=== PATIENT | male | born 1955 | race Hispanic/Latino ===

== ENCOUNTER 2017-09-03 07:44 | Emergency (ER) | payer BC ==
--- OUTSIDE RECORDS SUMMARY | 2017-09-03 07:46 | XMS REPORT | Clinical Summary ---
:1955 Author Organization [facility] Address [address] [place] [id number] Phone Care Team Providers Name Role Phone Unavailable Primary Care Provider Unavailable Allergies No Known Allergies Current Medications No known medications Active Problems Problem Noted Date Scrotal abscess 04/09/2016 Family History Medical History Relation Name Comments Diabetes Maternal Grandmother Diabetes Mother Relation Name Status Comments Maternal Grandmother Mother Social History Tobacco Use Types Packs/Day Years Used Date Current Every Day Smoker 2 40 Alcohol Use Drinks/Week oz/Week Comments Yes Sex Assigned at Date Recorded Not on file Last Filed Vital Signs Not on file Plan of Treatment Not on file Results Not on fileafter 09/02/2016
[2017-09-03 08:28] LABS: Urine Blood 3+ (NEG); Urine Glucose NEGATIVE (NEG); Urine Protein 3+ (NEG); Urine Specific Gravity >1.030 (1.005-1.030); Urine pH 5.5 (5.0-7.0)
[2017-09-03] MEDS ORDERED: PHENAZOPYRIDINE 100MG TAB PO ONE (08:29)
[2017-09-03 08:44] LABS: Urine Bacteria >50 /HPF (NONE SEEN); Urine Culture Reflex Order REFLEXED; Urine RBC >50 /HPF (NONE SEEN)
[2017-09-03 09:06] LABS: Absolute Lymphocytes (CBC) 0.7 K/uL (0.7-4.9); Absolute Monocytes 0.9 K/uL (0.1-1.3); Absolute Neutrophil 8.4 K/uL (1.8-8.0); Basophils % 0.1 % (0-1.3); Eosinophils % 4.9 % (0-4.4); Hematocrit 38.3 % (39.6-49.0); Lymphocytes % 7.1 % (15.3-44.8); MCH 28.7 pg (27.0-35.0); MCV 85.7 fL (80-100); Monocytes % 8.3 % (3.3-12.3); RBC Red Blood Cell Count 4.48 M/uL (4.33-5.43)
[2017-09-03 09:22] LABS: Potassium 3.7 mEq/L (3.6-5.0)
--- NOTE | 2017-09-03 09:22 | RAD REPORT ---
EXAM DESCRIPTION: CT - Stone Protocol - 09/03/2017 9:01 am CLINICAL HISTORY: Abdominal pain, dysuria, hematuria, history of kidney stones COMPARISON: CT imaging November 2012 TECHNIQUE: Axial 5 mm thick images were obtained without oral or IV contrast. The [id number]-doia span s the entirety of the system including uppermost abdomen and lung bases. All CT scans are performed using dose optimization technique as appropriate and may include automated exposure control or mA/KV adjustment according to patient size. FINDINGS: No hydronephrosis is present and no obstructing ureteral calculi. Two- 4 millimeter nonobs tructing caliceal calcifications noted on the left. No perinephric stranding seen. No suspicious liberty l masses. Isodense masses and pyelonephritis are not excluded on a stone protocol CT scan. Urinary bl adder is mostly contracted. Dunlap the bladder are mildly prominent and there is a congested or edemat ous appearance to the fat adjacent to the bladder base, prostate gland and seminal vesicles. Prostate gland size is mildly prominent but not clearly different from 2013. Imaged portions of the liver, spleen and pancreas show no suspicious findings on non-contrast imaging . No gallbladder or biliary tree abnormality identified. No significant adrenal finding. No suspicious bowel findings. No hernia, mass or bulky lymphadenopathy noted. No free air, free fluid, pneumatosis or other area of inflammatory stranding. Disc and bone degenerative changes are present. No acute bone process. No acute vascular finding on n oncontrast imaging. IMPRESSION: Suspected prostatitis and/or cystitis. Nonobstructing left renal calculi. No hydronephrosis or acute renal or ureteral process. Isodense masses and pyelonephritis are not excluded on stone protocol technique.
[2017-09-03 09:23] LABS: Glomerular Filtration Rate > 60 mL/min (>60)
[2017-09-03] MEDS ORDERED: MORPHINE 4 MG/ML SYR ONE (09:23)
[2017-09-03] MEDS ORDERED: ONDANSETRON 4 MG/2 ML VIAL ONE (09:23)
[2017-09-03 09:28] LABS: Albumin 3.8 g/dL (3.2-5.5); Bilirubin Direct 0.1 mg/dL (0-0.2); Bilirubin Total 0.8 mg/dL (0.3-1.2); Protein, Total 7.4 g/dL (6.0-8.3)
--- NOTE | 2017-09-03 09:40 | EDPHYS ---
Physician Documentation [facility] Name: Guille Copeland Jr Age: 62 yrs Sex: Male : 1955 Arrival Date: 09/03/2017 Time: 07:44 Bed 13 Private MD: Mushtaq Box H ED Physician Jesus Spence HPI: 09/03 08:14 This 62 yrs old Male presents to ER via Ambulatory with complaints of Pain cp With Urination. 08:14 The patient presents with urinary symptoms, dysuria, hematuria. Onset: The cp symptoms/episode began/occurred 3 day(s) ago. 08:14 Associated signs and symptoms: Pertinent positives: hematuria, Pertinent negatives: cp constipation, fever, vomiting. 08:14 Severity of symptoms: in the emergency department the symptoms are unchanged, despite cp home interventions. Historical: - Allergies: 07:58 No Known Allergies; ss - Home Meds: 07:58 None [Active]; ss - PMHx: 07:58 Kidney stones; ss - PSHx: 07:58 Appendectomy; back sx; R ankle; ss - Immunization history:: Adult Immunizations up to date. - Social history:: Smoking status: Patient/guardian denies using tobacco, the patient reports quitting approximately .25 years ago. ROS: 08:20 Constitutional: Negative for body aches, chills, fever, poor PO intake. cp 08:20 Eyes: Negative for injury, pain, redness, and discharge. cp 08:20 ENT: Negative for injury, pain, and discharge. cp 08:20 Cardiovascular: Negative for chest pain, edema, palpitations. cp 08:20 Respiratory: Negative for cough, shortness of breath, wheezing. 08:20 Abdomen/GI: Positive for abdominal pain, of the suprapubic area, Negative for vomiting, diarrhea, constipation, black/tarry stool, rectal bleeding. 08:20 : Positive for hematuria, Negative for testicular pain 08:20 Skin: Negative for cellulitis, rash. 08:20 Neuro: Negative for altered mental status, headache, weakness. 08:20 All other systems are negative. Exam: 08:30 Constitutional: The patient appears in no acute distress, alert, awake, non-toxic, well cp developed, well nourished, uncomfortable. 08:30 Head/Face: Normocephalic, atraumatic. cp 08:30 Eyes: Periorbital structures: appear normal, Conjunctiva: normal, no exudate, no injection, Sclera: no appreciated abnormality, Lids and lashes: appear normal, bilaterally. 08:30 ENT: External ear(s): are unremarkable, Nose: is normal, Mouth: is normal, Posterior pharynx: is normal, airway is patent, no erythema, no exudate, Voice: is normal. 08:30 Chest/axilla: Inspection: normal, Palpation: is normal, no crepitus, no tenderness. 08:30 Cardiovascular: Rate: normal, Rhythm: regular. 08:30 Respiratory: the patient does not display signs of respiratory distress, Respirations: normal, no use of accessory muscles, no retractions, no splinting, no tachypnea, labored breathing, is not present, Breath sounds: are clear throughout, no decreased breath sounds, no stridor, no wheezing. 08:30 Abdomen/GI: Inspection: abdomen appears normal, Bowel sounds: active, all quadrants, Palpation: soft, in all quadrants, moderate abdominal tenderness, in the suprapubic area and right lower quadrant, rebound tenderness, is not appreciated, voluntary guarding, is elicited in the suprapubic area and right lower quadrant. 08:30 Back: CVA tenderness, is absent. 08:30 Skin: cellulitis, is not appreciated, no rash present. Vital Signs: 07:58 BP 141 / 86; Pulse 93; Resp 18; Temp 98.2(TE); Pulse Ox 97% on R/A; Weight 65.77 kg; ss Height 5 ft. 3 in. (160.02 cm); Pain 7/10; 09:24 BP 134 / 78; Pulse 75; Resp 16; Pulse Ox 97% ; iw 07:58 Body Mass Index 25.69 (65.77 kg, 160.02 cm) ss MDM: 07:51 Patient medically screened. cp 09:35 Data reviewed: vital signs, nurses notes, lab test result(s), radiologic studies, CT cp scan, and as a result, I will discharge patient. 09/03 07:51 Order name: Urine Microscopic Only; Complete Time: 09:12 cp 09/03 09:12 Interpretation: Reviewed. 09/03 07:59 Order name: Urine Dipstick--Ancillary (enter results); Complete Time: 08:29 bd 04/ 08:30 Interpretation: Normal except: USPGR >1.030; UBLD 3+; UPROT 3+; UESTR TRACE. cp / 08:31 Order name: Amylase, Serum; Complete Time: 09:34 cp 09/03 09:34 Interpretation: JONY 52; Reviewed. cp 09/03 08:31 Order name: Basic Metabolic Panel; Complete Time: 09:34 cp 09/03 09:34 Interpretation: Normal except: NA 134; CL 100; GLUC 126; GFR 77. cp 09/03 08:31 Order name: CBC with Diff; Complete Time: 09:12 cp 09/03 09:16 Interpretation: Normal except: HGB 12.8; HCT 38.3; RAKESH% 79.6; LYM% 7.1; EOSINOPHIL % cp 4.9; NEUT A 8.4. 09/03 08:31 Order name: Creatinine for Radiology; Complete Time: 09:23 cp 09/03 08:31 Order name: CT Stone Protocol; Complete Time: 09:23 cp 09/03 08:31 Order name: Hepatic Function; Complete Time: 09:34 cp 09/03 09:34 Interpretation: Normal except: GLOB 3.6. cp 09/03 08:31 Order name: Lipase; Complete Time: 09:34 cp 09/03 09:34 Interpretation: LIP 16; Reviewed. cp 02 08:45 Order name: Urine Culture EDIA 09/03 07:51 Order name: Urine Dipstick-Ancillary (obtain specimen); Complete Time: 07:55 cp 09/03 08:02 Order name: Bladder Scanner: pre and post void; Complete Time: 08:21 cp 09/03 08:31 Order name: IV Saline Lock; Complete Time: 09:01 cp 09/03 08:31 Order name: Labs collected and sent; Complete Time: 09:01 cp Administered Medications: 08:11 Drug: Pyridium 200 mg Route: PO; iw 09:10 Drug: morphine 4 mg Route: IVP; Site: right forearm; iw 09:45 Follow up: Response: No adverse reaction; Pain is decreased iw 09:11 Drug: Zofran 4 mg Route: IVP; Site: right forearm; iw 09:40 Follow up: Response: No adverse reaction iw 09:35 Drug: Rocephin - (cefTRIAXone) 1 grams {Note: given IVP over 3 minutes.} Route: IVPB; iw Infused Over: 30 mins; Site: right forearm; 09:40 Follow up: IV Status: Completed infusion iw 09:42 Drug: TORadol 30 mg Route: IVP; Site: right forearm; iw 09:48 Follow up: Response: No adverse reaction iw Disposition: 09/03/17 09:39 Discharged to Home. Impression: Cystitis, unspecified with hematuria. - Condition is Stable. - Discharge Instructions: Urinary Tract Infection. - Prescriptions for Cipro 500 mg Oral Tablet - take 1 tablet by ORAL route every 12 hours for 10 days; 20 tablet. Ibuprofen 800 mg Oral Tablet - take 1 tablet by ORAL route every 8 hours As needed take with food; 30 tablet. Pyridium 200 mg Oral Tablet - take 1 tablet by ORAL route every 8 hours for 2 days; 6 tablet. - Work release form, Medication Reconciliation Form, Thank You Letter, Antibiotic Education, Prescription Opioid Use form. - Follow up: Mushtaq Box DO; When: 1 - 2 days; Reason: Recheck today's complaints. - Problem is new. - Symptoms have improved. Addendum: 09/04/2017 13:22 Co-signature as Attending Physician, Jesus Spence MD. g s Signatures: Dispatcher [employer] Elodia Myers RN RN iw Smirch, Shelby, RN RN ss Christ Harden, Jesus Ledesma cp, MD MD Corrections: (The following items were deleted from the chart) 09/03 09:34 09:25 Normal except: NA 134; CL 100; GLUC 126. cp cp
--- NOTE | 2017-09-03 09:40 | ER ---
Nurse's Notes [facility] Name: Guille Copeland Jr Age: 62 yrs Sex: Male : 1955 Arrival Date: 09/03/2017 Time: 07:44 Bed 13 Private MD: Mushtaq Box H Diagnosis: Cystitis, unspecified with hematuria Presentation: 09/03 07:55 Presenting complaint: Patient states: burning with urination that began 3 days ago with ss frequency and incontinence. Pt states, "I've had kidney stones before, so I thought maybe I passed one yesterday because I was starting to urinate more. This morning I noticed some small clots of blood in there." Pt reports he still feels as if he is not emptying his bladder completely. Transition of care: patient was not received from another setting of care. Onset of symptoms was August 30, 2017. Care prior to arrival: None. 07:55 Method Of Arrival: Ambulatory ss 07:55 Acuity: RACHAEL 3 ss Triage Assessment: 09:59 General: Appears in no apparent distress. Behavior is calm, cooperative. iw 09:59 Pain: Denies pain. iw Historical: - Allergies: 07:58 No Known Allergies; ss - Home Meds: 07:58 None [Active]; ss - PMHx: 07:58 Kidney stones; ss - PSHx: 07:58 Appendectomy; back sx; R ankle; ss - Immunization history:: Adult Immunizations up to date. - Social history:: Smoking status: Patient/guardian denies using tobacco, the patient reports quitting approximately .25 years ago. Screenin:26 Abuse screen: Denies threats or abuse. Denies injuries from another. Nutritional iw screening: No deficits noted. Tuberculosis screening: No symptoms or risk factors identified. Fall Risk IV access (20 points). Assessment: 09:25 Reassessment: Patient appears in no apparent distress at this time. Patient and/or iw family updated on plan of care and expected duration. Pain level reassessed. Patient is alert, oriented x 3, equal unlabored respirations, skin warm/dry/pink. Patient states feeling better. Vital Signs: 07:58 BP 141 / 86; Pulse 93; Resp 18; Temp 98.2(TE); Pulse Ox 97% on R/A; Weight 65.77 kg; ss Height 5 ft. 3 in. (160.02 cm); Pain 7/10; 09:24 BP 134 / 78; Pulse 75; Resp 16; Pulse Ox 97% ; iw 07:58 Body Mass Index 25.69 (65.77 kg, 160.02 cm) ED Course: 07:44 Patient arrived in ED. as 07:45 Mushtaq Box DO is Private Physician. as 07:50 Christ Harden PA is PHCP. cp 07:50 Jesus Spence MD is Attending Physician. cp 07:52 Elodia Goetz, HOLLIE is Primary Nurse. iw 07:57 Triage completed. ss 07:58 Arm band placed on right wrist. ss 08:59 Initial lab(s) drawn, by me, sent to lab. Inserted saline lock: 20 gauge in right mh5 antecubital area, using aseptic technique. Blood collected. 09:00 CT completed. Patient tolerated procedure well. Patient moved to CT via wheelchair. Patient moved back from CT. 09:01 CT Stone Protocol In Process Unspecified. EDMS 09:01 Amylase, Serum Sent. mh5 09:01 Basic Metabolic Panel Sent. 5 09:01 CBC with Diff Sent. mh5 09:01 Creatinine for Radiology Sent. mh5 09:02 Hepatic Function Sent. mh5 09:02 Lipase Sent. 5 09:02 Urine collected: clean catch specimen, edelmira colored. mh5 09:30 Patient has correct armband on for positive identification. iw 09:38 Mushtaq Box DO is Referral Physician. cp 09:59 No provider procedures requiring assistance completed. IV discontinued, intact, iw bleeding controlled, No redness/swelling at site. Pressure dressing applied. Administered Medications: 08:11 Drug: Pyridium 200 mg Route: PO; iw 09:10 Drug: morphine 4 mg Route: IVP; Site: right forearm; iw 09:45 Follow up: Response: No adverse reaction; Pain is decreased iw 09:11 Drug: Zofran 4 mg Route: IVP; Site: right forearm; iw 09:40 Follow up: Response: No adverse reaction iw 09:35 Drug: Rocephin - (cefTRIAXone) 1 grams {Note: given IVP over 3 minutes.} Route: IVPB; iw Infused Over: 30 mins; Site: right forearm; 09:40 Follow up: IV Status: Completed infusion iw 09:42 Drug: TORadol 30 mg Route: IVP; Site: right forearm; iw 09:48 Follow up: Response: No adverse reaction Outcome: 09:39 Discharge ordered by . cp 09:58 Discharged to home ambulatory, with family. iw 09:58 Condition: good 09:58 Discharge instructions given to patient, family, Instructed on discharge instructions, follow up and referral plans. medication usage, Demonstrated understanding of instructions, follow-up care, medications, Prescriptions given X 3. 10:00 Patient left the ED. iw Addendum: 09/05/2017 08:16 Addendum: Culture Results: Positive urine culture. No further action required. Bacteria i w sensitive to prescribed antibiotic. Signatures: Dispatcher [employer] Katie Mallory Amelia as Williams, Irene, RN RN iw Smirch, Shelby, RN RN ss Page, Corey, Melodie Urena cp mh
[2017-09-03] MEDS ORDERED: CEFTRIAXONE/SWI 1gm 1 GM/10 ML SYR ONE (09:54)
[2017-09-03] MEDS ORDERED: KETOROLAC 30 MG/ML INJ ONE (09:54)
== END 2017-09-03 10:00 | disposition home or self-care (01) ==
LOC: ER 07:44
DX: N30.91 Cystitis, unspecified with hematuria (principal); Z87.442 Personal history of urinary calculi
CPT/HCPCS: 36415; 74176; 76377; 80048; 80076; 81003; 81015; 82150; 83690; 85025; 87077; 87086; 87088; 87186; 96374; 96375; 99284; J0696; J2405

== ENCOUNTER 2018-09-01 18:49 | Emergency (ER) | payer BC ==
--- OUTSIDE RECORDS SUMMARY | 2018-09-01 18:51 | XMS REPORT | Clinical Summary ---
:[address] [facility] Address [address] [place] [address] Care Team Providers Name Role Phone Soham Primary Care Provider Allergies No Known Allergies Medications No known medications Active Problems Problem Noted Date Scrotal abscess 04/09/2016 Family History Medical History Relation Name Comments Diabetes Maternal Grandmother Diabetes Mother Relation Name Status Comments Maternal Grandmother Mother Social History Tobacco Use Types Packs/Day Years Used Date Current Every Day Smoker 2 40 Alcohol Use Drinks/Week oz/Week Comments Yes Sex Assigned at Date Recorded Not on file Job Start Date Occupation Industry Not on file Not on file Not on file Travel History Travel Start Travel End No recent travel history available. Last Filed Vital Signs Not on file Plan of Treatment Not on file Results Not on fileafter 08/31/2017 Insurance Payer Benefit Plan / Subscriber ID Type Phone Address Group BLUE CROSS/BLUE BCBS PPO POS EPO xxxxxxxxxxxx PPO [phone] [address] [place] [address] [address] [phone] [place], [place] (Work) [address] Advance Directives For more information, please contact:[address] [phone] Code Status Date Activated Date Inactivated Comments Full Code 04/09/2016 4:29 PM 04/10/2016 12:14 AM This code status was determined by: Patient
[2018-09-01 19:48] LABS: Absolute Lymphocytes (CBC) 1.1 K/uL (0.7-4.9); Absolute Monocytes 0.4 K/uL (0.1-1.3); Absolute Neutrophil 4.6 K/uL (1.8-8.0); Basophils % 0.4 % (0-1.3); Eosinophils % 7.6 % (0-4.4); Hematocrit 42.4 % (39.6-49.0); Lymphocytes % 17.2 % (15.3-44.8); MPV 7.7 fL (7.6-11.3); Monocytes % 6.4 % (3.3-12.3); RBC Red Blood Cell Count 4.83 M/uL (4.33-5.43)
[2018-09-01] MEDS ORDERED: ASPIRIN 81 MG CHEWABLE TABLET ONE (19:50)
[2018-09-01] MEDS ORDERED: MORPHINE 4 MG/ML SYR ONE (19:51)
--- NOTE | 2018-09-01 19:53 | RAD REPORT ---
EXAM DESCRIPTION: RAD - Chest Single View - 09/01/2018 7:47 pm CLINICAL HISTORY: Chest pain COMPARISON: January 2016 TECHNIQUE: AP portable chest image was obtained 1944 hours . FINDINGS: Lungs are clear. Heart and vasculature are normal. No measurable pleural effusion and no p neumothorax. No acute bony abnormality seen. No acute aortic findings suspected. IMPRESSION: No acute cardiopulmonary process. No suspicious change from comparison.
[2018-09-01 20:10] LABS: ALT/SGPT 29 U/L (12-78); AST/SGOT 13 U/L (15-37); Albumin 3.7 g/dL (3.4-5.0); Alkaline Phosphatase 84 U/L (45-117); BUN Blood Urea Nitrogen 19 mg/dL (7-18); Bicarbonate 28 mmol/L (21-32); Bilirubin Direct 0.1 mg/dL (0-0.2); Bilirubin Total 0.3 mg/dL (0.2-1.0); Glucose Level 111 mg/dL (74-106); Magnesium 2.1 mg/dL (1.8-2.4); NT PRO-BNP 21 pg/mL (<125); Protein, Total 7.4 g/dL (6.4-8.2); Sodium Level 141 mmol/L (136-145); Troponin (Emerg Dept Use Only) < 0.02 ng/mL (0.0-0.045)
--- NOTE | 2018-09-01 23:08 | ER ---
Nurse's Notes [facility] Name: Guille Copeland Jr Age: 63 yrs Sex: Male : 1955 Arrival Date: 09/01/2018 Time: 18:50 Bed 17 Private MD: Mushtaq Box H Diagnosis: Other chest pain;Zoster [herpes zoster]-Left lateral chest Presentation: 09/01 18:53 Presenting complaint: Patient states: I have been having a soreness in my chest and la1 pain when I breathe starting Sunday and then I started with a rash on my back. Transition of care: patient was not received from another setting of care. Onset of symptoms was September 01, 2018. Risk Assessment: Do you want to hurt yourself or someone else? Patient reports no desire to harm self or others. Initial Sepsis Screen: Does the patient meet any 2 criteria? No. Patient's initial sepsis screen is negative. Does the patient have a suspected source of infection? No. Patient's initial sepsis screen is negative. Care prior to arrival: None. 18:53 Method Of Arrival: Ambulatory la1 18:53 Acuity: RACHAEL 3 la1 Historical: - Allergies: 18:54 No Known Allergies; la1 - PMHx: 18:54 Kidney stones; la1 - Immunization history:: Adult Immunizations up to date. - Social history:: Smoking status: Patient/guardian denies using tobacco. - Ebola Screening: : No symptoms or risks identified at this time. Screenin:57 Abuse screen: Denies threats or abuse. Nutritional screening: No deficits noted. tw2 Tuberculosis screening: No symptoms or risk factors identified. Fall Risk None identified. Assessment: 18:58 Respiratory: Airway is patent Respiratory effort is even, unlabored. tw2 19:18 General: Appears uncomfortable, Behavior is calm, cooperative. Pain: Complains of pain ed1 in left scapular area and left subscapular area Pain radiates to chest Pain currently is 7 out of 10 on a pain scale. Quality of pain is described as burning, Pain began 2-3 days ago. Is continuous. Neuro: Level of Consciousness is awake, alert, obeys commands, Oriented to person, place, time, situation. Cardiovascular: Denies chest pain, Heart tones S1 S2 present Rhythm is regular. Respiratory: Reports shortness of breath at rest Airway is patent Respiratory effort is even, unlabored, Respiratory pattern is regular, symmetrical, Breath sounds are clear bilaterally. GI: Abdomen is non-distended, Bowel sounds present X 4 quads. Abd is soft and non tender X 4 quads. Patient currently denies diarrhea, nausea, vomiting. : No signs and/or symptoms were reported regarding the genitourinary system. EENT: No signs and/or symptoms were reported regarding the EENT system. Derm: Rash noted that is red, raised, vesicular, on left scapular area and left subscapular area. Musculoskeletal: Circulation, motion, and sensation intact. Range of motion: intact in all extremities. 20:11 Reassessment: Patient appears in no apparent distress at this time. No changes from ed1 previously documented assessment. Patient and/or family updated on plan of care and expected duration. Pain level reassessed. Patient is alert, oriented x 3, equal unlabored respirations, skin warm/dry/pink. Patient states symptoms have not improved. 23:32 Reassessment: Patient appears in no apparent distress at this time. Patient and/or ed1 family updated on plan of care and expected duration. Pain level reassessed. Patient is alert, oriented x 3, equal unlabored respirations, skin warm/dry/pink. Patient states symptoms have not improved. Vital Signs: 18:54 BP 166 / 81; Pulse 91; Resp 16; Temp 97.4; Pulse Ox 100% on R/A; Weight 68.04 kg; la1 Height 5 ft. 4 in. (162.56 cm); 18:54 Pain 7/10; la1 19:30 Pulse Ox 100% on R/A; cp 20:11 BP 158 / 92; Pulse 80; Resp 18; Pulse Ox 100% on R/A; Pain 7/10; ed1 23:32 BP 149 / 89; Pulse 84; Resp 19; Pulse Ox 100% on R/A; Pain 6/10; ed1 18:54 Body Mass Index 25.75 (68.04 kg, 162.56 cm) la1 ED Course: 18:50 Patient arrived in ED. mr 18:51 Mushtaq Box DO is Private Physician. mr 18:54 Triage completed. la1 18:54 Arm band placed on right wrist. la1 18:58 Bed in low position. Call light in reach. satellite project site monitor on. Pulse ox on. NIBP on. tw2 19:16 Christ Harden PA is PHCP. cp 19:16 Benjamín Self MD is Attending Physician. cp 19:17 Juliette Sandy, RN is Primary Nurse. ed1 19:38 Initial lab(s) drawn, by me, sent to lab. Inserted saline lock: 20 gauge in right ed1 antecubital area, using aseptic technique. Blood collected. 19:46 XRAY Chest (1 view) In Process Unspecified. EDMS 23:06 Mushtaq Box DO is Referral Physician. cp 23:32 No provider procedures requiring assistance completed. IV discontinued, intact, ed1 bleeding controlled, No redness/swelling at site. Pressure dressing applied. Administered Medications: 19:53 Drug: morphine 4 mg Route: IVP; Site: right antecubital; ed1 21:48 Follow up: Response: No adverse reaction; Pain is unchanged, physician notified ed1 19:53 Drug: Aspirin Chewable Tablet 324 mg Route: PO; ed1 21:48 Follow up: Response: No adverse reaction ed1 23:30 Drug: Hydrocodone-Acetaminophen (7.5 mg-325 mg) 1 tabs Route: PO; ed1 23:30 Follow up: Response: Medication administered at discharge. ed1 23:30 Drug: Acyclovir 800 mg Route: PO; ed1 23:30 Follow up: Response: Medication administered at discharge. ed1 Outcome: 23:07 Discharge ordered by MD. cp 23:32 Discharged to home ambulatory, with significant other. ed1 23:32 Condition: good 23:32 Discharge instructions given to patient, Instructed on discharge instructions, follow up and referral plans. medication usage, Demonstrated understanding of instructions, follow-up care, medications, Prescriptions given X 4. 23:34 Patient left the ED. ed1 Signatures: Dispatcher [employer] [facility] Dena Dunn mr Juliette Sandy, RN RN ed1 Shay Zuluaga RN RN la1 Christ Harden PA PA cp Laurie Crawford RN RN tw2
--- NOTE | 2018-09-01 23:08 | EDPHYS ---
Physician Documentation [facility] Name: Guille Copeland Jr Age: 63 yrs Sex: Male : 1955 Arrival Date: 09/01/2018 Time: 18:50 Bed 17 Private MD: Mushtaq Box H ED Physician Benjamín Self HPI: 09/01 19:15 This 63 yrs old Male presents to ER via Ambulatory with complaints of cp Shortness Of Breath, Chest Pain. 19:15 The patient or guardian reports chest pain that is located primarily in the left cp lateral chest. 19:15 Onset: 3 day(s) ago. The pain radiates to left back. cp 19:15 The chest pain is described as burning. cp 19:18 Patient reports granddaughter noticed small area of rash yesterday that has worsened cp today of left lateral chest. Historical: - Allergies: 18:54 No Known Allergies; la1 - PMHx: 18:54 Kidney stones; la1 - Immunization history:: Adult Immunizations up to date. - Social history:: Smoking status: Patient/guardian denies using tobacco. - Ebola Screening: : No symptoms or risks identified at this time. ROS: 19:20 Constitutional: Negative for body aches, chills, fever, poor PO intake. cp 19:20 Eyes: Negative for injury, pain, redness, and discharge. cp 19:20 ENT: Negative for drainage from ear(s), ear pain, sore throat, difficulty swallowing, difficulty handling secretions. 19:20 Cardiovascular: Positive for chest pain, of the left lateral chest, Negative for edema, palpitations. 19:20 Respiratory: Positive for cough, shortness of breath, Negative for wheezing. 19:20 Abdomen/GI: Negative for abdominal pain, nausea, vomiting, and diarrhea, anorexia, black/tarry stool, rectal bleeding. 19:20 Back: Positive for pain at rest, of the left subscapular area, Negative for injury or acute deformity, decreased range of motion. 19:20 Skin: Positive for rash, of the left lateral chest and left upper back area, Negative for diaphoresis. 19:20 Neuro: Negative for altered mental status, dizziness, syncope, weakness. 19:20 All other systems are negative. Exam: 19:30 Constitutional: The patient appears in no acute distress, alert, awake, cp non-diaphoretic, well developed, well nourished. 19:30 Head/Face: Normocephalic, atraumatic. cp 19:30 Eyes: Pupils equal round and reactive to light, extra-ocular motions intact. Lids and lashes normal. Conjunctiva and sclera are non-icteric and not injected. Cornea within normal limits. Periorbital areas with no swelling, redness, or edema. ENT: Nares patent. No nasal discharge, no septal abnormalities noted. Tympanic membranes are normal and external auditory canals are clear. Oropharynx with no redness, swelling, or masses, exudates, or evidence of obstruction, uvula midline. Mucous membranes moist. 19:30 Chest/axilla: Inspection: rash, of the left lateral chest wall Palpation: crepitus, is not appreciated, tenderness, that is moderate, of the left lateral chest wall, that partially reproduces the patient's complaints. 19:30 Cardiovascular: Rate: normal, Rhythm: regular, Pulses: Pulses are 2+ in right radial artery and left radial artery. Heart sounds: murmur, not appreciated, rub, not appreciated, Edema: is not appreciated, JVD: is not appreciated. 19:30 Respiratory: the patient does not display signs of respiratory distress, Respirations: normal, no use of accessory muscles, no retractions, no splinting, no tachypnea, labored breathing, is not present, Breath sounds: are clear throughout, no decreased breath sounds, no stridor, no wheezing. 19:30 Abdomen/GI: Inspection: abdomen appears normal, Bowel sounds: active, all quadrants, Palpation: abdomen is soft and non-tender, in all quadrants. 19:30 Back: pain, that is moderate, of the left subscapular area. 19:30 Skin: cellulitis, is not appreciated, consistent with zoster, on the left lateral chest wall and left upper back. 19:30 Neuro: Orientation: to person, place \T\ time. Mentation: is normal, Cerebellar function: is grossly normal, Motor: moves all fours, strength is normal, Sensation: is normal. 19:32 ECG was reviewed by the Attending Physician. cp 22:25 ECG was reviewed by the Attending Physician. cp Vital Signs: 18:54 BP 166 / 81; Pulse 91; Resp 16; Temp 97.4; Pulse Ox 100% on R/A; Weight 68.04 kg; la1 Height 5 ft. 4 in. (162.56 cm); 18:54 Pain 7/10; la1 19:30 Pulse Ox 100% on R/A; cp 20:11 BP 158 / 92; Pulse 80; Resp 18; Pulse Ox 100% on R/A; Pain 7/10; ed1 23:32 BP 149 / 89; Pulse 84; Resp 19; Pulse Ox 100% on R/A; Pain 6/10; ed1 18:54 Body Mass Index 25.75 (68.04 kg, 162.56 cm) la1 MDM: 19:17 Patient medically screened. cp 19:30 Differential diagnosis: abnormal EKG, acute myocardial infarction, acute pericarditis, cp chest wall pain, costochondritis, pericarditis, pleurisy, stable angina, unstable angina, herpes zoster Myocardial Infarction pneumonia, Pneumothorax Pulmonary Embolism. 23:05 The patient was given aspirin in the Emergency Department. cp 23:05 AURE Risk Score: 1 - patient's age is greater or equal to 65 years. Data reviewed: cp vital signs, nurses notes, lab test result(s), EKG, radiologic studies, plain films. Test interpretation: by ED physician or midlevel provider: ECG, plain radiologic studies, chest xray negative for infiltrate. Response to treatment: the patient's symptoms have markedly improved after treatment. ED course: VSS. Pain markedly improved. Troponin levels negative and repeat EKG normal. Pain most likely due to herpes zoster and not cardiac as cause. Will discharge to home for continued monitoring. 09/01 19:17 Order name: Basic Metabolic Panel; Complete Time: 20:21 cp 09/01 20:21 Interpretation: Normal except: GLUC 111; BUN 19; GFR 69. cp 09/01 19:17 Order name: CBC with Diff; Complete Time: 20:21 cp 09/01 20:21 Interpretation: Normal except: EOSINOPHIL % 7.6. cp 09/01 19:17 Order name: LFT's; Complete Time: 20:21 cp 09/01 20:22 Interpretation: Normal except: AST 13; GLOB 3.7; A/G 1.0. cp 09/01 19:17 Order name: Magnesium; Complete Time: 20:21 cp 09/01 19:17 Order name: NT PRO-BNP; Complete Time: 20:21 cp 09/01 19:17 Order name: PT-INR; Complete Time: 20:21 cp 09/01 19:17 Order name: Troponin (emerg Dept Use Only); Complete Time: 20:21 cp 09/01 20:21 Interpretation: Reviewed. cp 09/01 19:17 Order name: XRAY Chest (1 view); Complete Time: 20:21 cp 09/01 19:17 Order name: EKG; Complete Time: 19:18 cp 09/01 22:02 Order name: Troponin (emerg Dept Use Only); Complete Time: 23:00 ed1 09/01 23:00 Interpretation: Reviewed. cp 09/01 19:17 Order name: Cardiac monitoring; Complete Time: 19:38 cp 09/01 19:17 Order name: EKG - Nurse/Tech; Complete Time: 19:18 cp 09/01 19:17 Order name: IV Saline Lock; Complete Time: 19:38 cp 09/01 19:17 Order name: Labs collected and sent; Complete Time: 19:38 cp 09/01 19:17 Order name: O2 Per Protocol; Complete Time: 19:38 cp 09/01 19:17 Order name: O2 Sat Monitoring; Complete Time: 19:38 cp 09/01 22:10 Order name: EKG; Complete Time: 22:11 cp 09/01 22:10 Order name: EKG - Nurse/Tech; Complete Time: 22:34 cp EC:32 Rate is 77 beats/min. Rhythm is regular. AK interval is normal. QRS interval is normal. cp QT interval is normal. T waves are Inverted in lead aVL. Interpreted by me. Reviewed by me. 22:25 Rate is 66 beats/min. Rhythm is regular. AK interval is normal. QRS interval is normal. cp QT interval is normal. T waves are Inverted in lead aVL. Interpreted by me. Reviewed by me. Administered Medications: 19:53 Drug: morphine 4 mg Route: IVP; Site: right antecubital; ed1 21:48 Follow up: Response: No adverse reaction; Pain is unchanged, physician notified ed1 19:53 Drug: Aspirin Chewable Tablet 324 mg Route: PO; ed1 21:48 Follow up: Response: No adverse reaction ed1 23:30 Drug: Hydrocodone-Acetaminophen (7.5 mg-325 mg) 1 tabs Route: PO; ed1 23:30 Follow up: Response: Medication administered at discharge. ed1 23:30 Drug: Acyclovir 800 mg Route: PO; ed1 23:30 Follow up: Response: Medication administered at discharge. ed1 Disposition: 23:37 Co-signature as Attending Physician, Benjamín Self MD. coredll Disposition: 09/01/18 23:07 Discharged to Home. Impression: Other chest pain, Zoster [herpes zoster] - Left lateral chest. - Condition is Stable. - Discharge Instructions: Nonspecific Chest Pain, Shingles. - Prescriptions for Acyclovir 800 mg Oral Tablet - take 1 tablet by ORAL route 5 times per day for 10 days; 50 tablet. Ibuprofen 800 mg Oral Tablet - take 1 tablet by ORAL route every 8 hours As needed take with food; 30 tablet. Tylenol- Codeine #3 300-30 mg Oral Tablet - take 2 tablets by ORAL route every 6 hours As needed; 20 tablet. capsaicin 0.075 % Topical cream - apply 1 application by TOPICAL route 3 times per day As needed apply to area of rash as directed; 60 gram. - Work release form, Medication Reconciliation Form, Thank You Letter, Antibiotic Education, Prescription Opioid Use form. - Follow up: Mushtaq Box DO; When: 1 - 2 days; Reason: Recheck today's complaints. - Problem is new. - Symptoms have improved. Signatures: Dispatcher [employer] EDMN Benjamín eSlf MD MD pkl Riggs, Erika, RN RN ed1 Sahy Zuluaga RN RN la1 Christ Harden PA PA cp Corrections: (The following items were deleted from the chart) 23:34 23:07 09/01/2018 23:07 Discharged to Home. Impression: Other chest pain; Zoster [herpes ed1 zoster] - Left lateral chest. Condition is Stable. Prescriptions for Acyclovir 800 mg Oral Tablet - take 1 tablet by ORAL route 5 times per day for 10 days; 50 tablet. and Forms are Medication Reconciliation Form, Thank You Letter, Antibiotic Education, Prescription Opioid Use. Follow up: Mushtaq Box; When: 1 - 2 days; Reason: Recheck today's complaints. Problem is new. Symptoms have improved. cp
[2018-09-01] MEDS ORDERED: ACYCLOVIR 400 MG TABLET ONE (23:30)
[2018-09-01] MEDS ORDERED: HYDROCODONE/APAP 7.5/325 MG TAB ONE (23:30)
== END 2018-09-01 23:34 | disposition home or self-care (01) ==
LOC: ER 18:49
DX: B02.9 Zoster without complications (principal)
CPT/HCPCS: 36415; 71045; 80048; 80076; 83735; 83880; 84484; 85025; 85610; 93005; 96374; 99284

== ENCOUNTER 2022-01-27 03:42 | Emergency (ER) | payer BC ==
[2022-01-27 04:09] LABS: Absolute Lymphocytes (CBC) 1.5 K/uL (0.7-4.9); Hematocrit 40.4 % (39.6-49.0); Lymphocytes % 22.3 % (15.3-44.8); MCV 87.1 fL (80-100); MPV 7.1 fL (7.6-11.3); RBC Red Blood Cell Count 4.63 M/uL (4.33-5.43)
[2022-01-27] MEDS ORDERED: NA CHLORIDE 0.9% 100 ML ONE (04:09)
[2022-01-27] MEDS ORDERED: NA CHLORIDE 0.9% 1,000 ML ONE (04:09)
[2022-01-27] MEDS ORDERED: LEVETIRACETAM 500 MG/5 ML VIAL IV ONE (04:09)
[2022-01-27 04:15] LABS: Protime INR 1.02
[2022-01-27 04:29] LABS: ALT/SGPT 20 U/L (12-78); AST/SGOT 13 U/L (15-37); Albumin 3.5 g/dL (3.4-5.0); Alkaline Phosphatase 74 U/L (45-117); BUN Blood Urea Nitrogen 12 mg/dL (7-18); Bicarbonate 28 mmol/L (21-32); Bilirubin Total 0.3 mg/dL (0.2-1.0); Glomerular Filtration Rate 79 ml/min (=/>90); Glucose Level 113 mg/dL (74-106); Magnesium 2.3 mg/dL (1.8-2.4); NT PRO-BNP 16 pg/mL (<125); Potassium 3.7 mmol/L (3.5-5.1); Protein, Total 6.9 g/dL (6.4-8.2); Sodium Level 136 mmol/L (136-145); Troponin High Sensitivity 4.8 pg/mL (<58.9)
[2022-01-27 04:40] LABS: Bilirubin Direct < 0.1 mg/dL (0-0.2)
[2022-01-27 04:47] LABS: SARS-CoV-2 Antigen Rapid Res Negative (Negative)
[2022-01-27 05:12] LABS: Urine Blood Negative (Negative); Urine Glucose Negative (Negative); Urine Protein Negative (Negative); Urine Specific Gravity 1.025 (1.005-1.030); Urine pH 6.5 (5.0-7.0)
--- NOTE | 2022-01-27 06:38 | ER ---
Nurse's Notes [facility] Name: Guille Copeland Jr Age: 66 yrs Sex: Male : 1955 Arrival Date: 01/27/2022 Time: 03:44 Bed 20 Private MD: Diagnosis: Epileptic seizures related to external causes, not intractable;Altered mental status, unspecified-Resolved Presentation: 01/27 03:46 Chief complaint: Patient states: We were called out for probable seizure. Pt's jb4 reports trying to wake him and he was convulsing and foaming at the mouth. No history of seizures. Currently seeing a neurologist for seizure like activity. bgl 105. Coronavirus screen: At this time, the client does not indicate any symptoms associated with coronavirus-19. Ebola Screen: No symptoms or risks identified at this time. Initial Sepsis Screen: Does the patient meet any 2 criteria? RR > 20 per min. Yes Does the patient have a suspected source of infection? No. Patient's initial sepsis screen is negative. Risk Assessment: Do you want to hurt yourself or someone else? Patient reports no desire to harm self or others. Onset of symptoms was January 27, 2022. Transition of care: patient was not received from another setting of care. 03:46 Method Of Arrival: EMS: [facility] jb4 03:46 Acuity: RACHAEL 3 jb4 Historical: - Allergies: 03:48 No Known Allergies; jb4 - Home Meds: 03:48 BP med [Active]; jb4 - PMHx: 03:48 Kidney stones; HTN; jb4 Screenin:49 Abuse screen: Denies threats or abuse. Nutritional screening: No deficits noted. jb4 Tuberculosis screening: No symptoms or risk factors identified. Fall Risk None identified. Assessment: 03:49 General: Appears in no apparent distress. comfortable, Behavior is calm, cooperative, jb4 appropriate for age. Pain: Denies pain. Neuro: Level of Consciousness is awake, alert, obeys commands, Oriented to person, place, time. Cardiovascular: Patient's skin is warm and dry. Respiratory: Airway is patent Respiratory effort is even, unlabored, Respiratory pattern is regular, symmetrical. Derm: Skin is intact, Skin is pink, warm \T\ dry. Musculoskeletal: Circulation, motion, and sensation intact. Range of motion:. 05:00 Reassessment: Patient appears in no apparent distress at this time. Patient and/or jb4 family updated on plan of care and expected duration. Pain level reassessed. Patient is alert, oriented x 3, equal unlabored respirations, skin warm/dry/pink. 06:00 Reassessment: Patient appears in no apparent distress at this time. Patient and/or jb4 family updated on plan of care and expected duration. Pain level reassessed. Patient is alert, oriented x 3, equal unlabored respirations, skin warm/dry/pink. 06:53 Reassessment: Patient appears in no apparent distress at this time. Patient and/or jb4 family updated on plan of care and expected duration. Pain level reassessed. Patient is alert, oriented x 3, equal unlabored respirations, skin warm/dry/pink. Vital Signs: 03:46 BP 138 / 92; Pulse 89; Resp 21; Temp 97.5(TE); Pulse Ox 100% on R/A; Pain 0/10; jb4 04:30 BP 136 / 87; Pulse 79; Resp 16; Pulse Ox 96% on R/A; jb4 05:30 BP 132 / 83; Pulse 67; Resp 16; Pulse Ox 96% on R/A; jb4 06:53 BP 119 / 79; Pulse 62; Resp 17; Pulse Ox 95% on R/A; jb4 ED Course: 03:44 Patient arrived in ED. wm 03:46 Moose Maldonado, HOLLIE is Primary Nurse. jb4 03:46 Christ Nguyen MD is Attending Physician. ashkan 03:48 Triage completed. jb4 03:48 Arm band placed on right wrist. jb4 03:49 Patient has correct armband on for positive identification. Placed in gown. Bed in low jb4 position. Call light in reach. Side rails up X 1. Client placed on continuous cardiac and pulse oximetry monitoring. NIBP monitoring applied. telemetry monitor on. 04:01 Inserted saline lock: 20 gauge in right antecubital area, using aseptic technique. ds4 Blood collected. 04:05 XRAY Chest (1 view) In Process Unspecified. EDMS 04:05 Troponin HS Sent. jb4 04:05 PT-INR Sent. jb4 04:05 NT PRO-BNP Sent. jb4 04:05 Magnesium Sent. jb4 04:05 LFT's Sent. jb4 04:05 CBC with Diff Sent. jb4 04:05 Basic Metabolic Panel Sent. jb4 04:19 CT Head C Spine In Process Unspecified. EDMS 06:08 CT Chest Wo Con In Process Unspecified. EDMS 06:38 Ayush Sarabia MD is Referral Physician. [facility] 06:53 No provider procedures requiring assistance completed. IV discontinued, intact, jb4 bleeding controlled, No redness/swelling at site. Pressure dressing applied. Administered Medications: 04:19 Drug: Keppra (levETIRAcetam) 1000 mg Route: IV; Rate: per protocol; Site: right jb4 antecubital; 04:34 Follow up: Response: No adverse reaction; IV Status: Completed infusion; IV Intake: jb4 100ml 04:19 Drug: NS 0.9% 500 ml Route: IV; Rate: bolus; Site: right antecubital; jb4 04:53 Follow up: Response: No adverse reaction; IV Status: Completed infusion; IV Intake: jb4 500ml 04:53 Drug: NS 0.9% 1000 ml Route: IV; Rate: 125 ml/hr; Site: right antecubital; jb4 Medication: 06:53 VIS not applicable for this client. jb4 Intake: 04:34 IV: 100ml; Total: 100ml. jb4 04:53 IV: 500ml; Total: 600ml. jb4 Outcome: 06:38 Discharge ordered by . [facility] 06:53 Discharged to home via wheelchair, with family. jb4 06:53 Condition: stable 06:53 Discharge instructions given to patient, Instructed on discharge instructions, follow up and referral plans. medication usage, Demonstrated understanding of instructions, follow-up care, medications, Prescriptions given X 1. 06:54 Patient left the ED. jb4 Signatures: Dispatcher [employer] Christ Cason MD MD cha Swanson, Donovan ds4 Moose Maldonado, HOLLIE RN Meyl Ruiz
--- NOTE | 2022-01-27 06:39 | EDPHYS ---
Physician Documentation [facility] Name: Guille Copeland Jr Age: 66 yrs Sex: Male : 1955 Arrival Date: 01/27/2022 Time: 03:44 Bed 20 Private MD: ED Physician Christ Nguyen HPI: 01/27 03:53 This 66 yrs old Male presents to ER via EMS with complaints of Altered Mental ashkan Status, Seizure. 03:53 The patient presents with agitation, confusion, decreased mental status, decreased ashkan responsiveness, disorientation, seizure activity, trouble concentrating. Onset: The symptoms/episode began/occurred just prior to arrival. Possible causes: seizure, the patient has a known seizure history. Associated signs and symptoms: The patient has no apparent associated signs or symptoms. Current symptoms: In the emergency department the patient's symptoms have improved, markedly. Patient's baseline: Neuro: alert and fully oriented. Unable to obtain HPI due to obtunded state. The patient has not experienced similar symptoms in the past, but family has similar symptoms. The patient has not recently seen a physician. Historical: - Allergies: 03:48 No Known Allergies; jb4 - Home Meds: 03:48 BP med [Active]; jb4 - PMHx: 03:48 Kidney stones; HTN; jb4 ROS: 03:54 Constitutional: Negative for fever, chills, and weight loss, Eyes: Negative for injury, ashkan pain, redness, and discharge, ENT: Negative for injury, pain, and discharge, Neck: Negative for injury, pain, and swelling, Cardiovascular: Negative for chest pain, palpitations, and edema, Respiratory: Negative for shortness of breath, cough, wheezing, and pleuritic chest pain, Abdomen/GI: Negative for abdominal pain, nausea, vomiting, diarrhea, and constipation, Back: Negative for injury and pain, : Negative for injury, bleeding, discharge, and swelling, MS/Extremity: Negative for injury and deformity, Skin: Negative for injury, rash, and discoloration, Psych: Negative for depression, anxiety, suicide ideation, homicidal ideation, and hallucinations, Allergy/Immunology: Negative for hives, rash, and allergies, Endocrine: Negative for neck swelling, polydipsia, polyuria, polyphagia, and marked weight changes, Hematologic/Lymphatic: Negative for swollen nodes, abnormal bleeding, and unusual bruising. 03:54 Neuro: Positive for loss of consciousness, weakness. Exam: 03:54 Constitutional: This is a well developed, well nourished patient who is awake, alert, ashkan and in no acute distress. Head/Face: Normocephalic, atraumatic. Eyes: Pupils equal round and reactive to light, extra-ocular motions intact. Lids and lashes normal. Conjunctiva and sclera are non-icteric and not injected. Cornea within normal limits. Periorbital areas with no swelling, redness, or edema. ENT: Nares patent. No nasal discharge, no septal abnormalities noted. Tympanic membranes are normal and external auditory canals are clear. Oropharynx with no redness, swelling, or masses, exudates, or evidence of obstruction, uvula midline. Mucous membranes moist. Neck: Trachea midline, no thyromegaly or masses palpated, and no cervical lymphadenopathy. Supple, full range of motion without nuchal rigidity, or vertebral point tenderness. No Meningismus. Chest/axilla: Normal chest wall appearance and motion. Nontender with no deformity. No lesions are appreciated. Cardiovascular: Regular rate and rhythm with a normal S1 and S2. No gallops, murmurs, or rubs. Normal PMI, no JVD. No pulse deficits. Respiratory: Lungs have equal breath sounds bilaterally, clear to auscultation and percussion. No rales, rhonchi or wheezes noted. No increased work of breathing, no retractions or nasal flaring. Abdomen/GI: Soft, non-tender, with normal bowel sounds. No distension or tympany. No guarding or rebound. No evidence of tenderness throughout. Back: No spinal tenderness. No costovertebral tenderness. Full range of motion. Male : Normal genitalia with no discharge or lesions. Skin: Warm, dry with normal turgor. Normal color with no rashes, no lesions, and no evidence of cellulitis. MS/ Extremity: Pulses equal, no cyanosis. Neurovascular intact. Full, normal range of motion. Neuro: Awake and alert, GCS 15, oriented to person, place, time, and situation. Cranial nerves II-XII grossly intact. Motor strength 5/5 in all extremities. Sensory grossly intact. Cerebellar exam normal. Normal gait. Psych: Awake, alert, with orientation to person, place and time. Behavior, mood, and affect are within normal limits. 04:44 ECG was reviewed by the Attending Physician. [facility] Vital Signs: 03:46 BP 138 / 92; Pulse 89; Resp 21; Temp 97.5(TE); Pulse Ox 100% on R/A; Pain 0/10; jb4 04:30 BP 136 / 87; Pulse 79; Resp 16; Pulse Ox 96% on R/A; jb4 05:30 BP 132 / 83; Pulse 67; Resp 16; Pulse Ox 96% on R/A; jb4 06:53 BP 119 / 79; Pulse 62; Resp 17; Pulse Ox 95% on R/A; jb4 MDM: 03:46 Patient medically screened. [facility] 04:46 Differential Diagnosis: CVA, electrolyte abnormality, hypoglycemia, intracranial bleed, ashkan seizure, TIA, volume depletion, , cerebral vascular accident, cardiac arrhythmia, seizure, TIA. Data reviewed: vital signs, nurses notes, EMS record, lab test result(s), EKG, radiologic studies, CT scan, plain films. Data interpreted: despatch clerk: rate is 21 beats/min, rhythm is regular, Pulse oximetry: on room air is 100 %. Test interpretation: by ED physician or midlevel provider: ECG, plain radiologic studies. Counseling: I had a detailed discussion with the patient and/or guardian regarding: the historical points, exam findings, and any diagnostic results supporting the discharge/admit diagnosis, lab results, radiology results, the need for outpatient follow up, for definitive care, a family practitioner, a neurologist. 01/27 03:51 Order name: Basic Metabolic Panel; Complete Time: 04:44 [facility] 01/27 03:51 Order name: CBC with Diff; Complete Time: 04:37 [place] 01/27 03:51 Order name: LFT's; Complete Time: 04:44 01/27 03:51 Order name: Magnesium; Complete Time: 04:44 [facility] 01/27 03:51 Order name: NT PRO-BNP; Complete Time: 04:44 01/27 03:51 Order name: PT-INR; Complete Time: 04:37 01/27 03:51 Order name: Troponin HS; Complete Time: 04:44 01/27 03:51 Order name: XRAY Chest (1 view) [facility] 01/27 03:51 Order name: SARS RAPID; Complete Time: 05:07 [facility] 01/27 03:51 Order name: CT Head C Spine [facility] 01/27 05:11 Order name: CT Chest Wo Con [facility] 01/27 05:13 Order name: Urine Dipstick-Ancillary; Complete Time: 05:34 EDMS 01/27 03:51 Order name: EKG; Complete Time: 03:52 [facility] 01/27 03:51 Order name: Cardiac monitoring; Complete Time: 03:53 [facility] 01/27 03:51 Order name: EKG - Nurse/Tech; Complete Time: 04:20 [facility] 01/27 03:51 Order name: IV Saline Lock; Complete Time: 04:01 [facility] 01/27 03:51 Order name: Labs collected and sent; Complete Time: 04:01 [facility] 01/27 03:51 Order name: O2 Per Protocol; Complete Time: 04:01 [facility] 01/27 03:51 Order name: O2 Sat Monitoring; Complete Time: 04:01 [facility] 01/27 03:51 Order name: Seizure Precautions; Complete Time: 03:52 [facility] 01/27 03:51 Order name: Urine Dipstick-Ancillary (obtain specimen); Complete Time: 05:12 [facility] EC:44 Rate is 78 beats/min. Rhythm is regular. QRS Mchenry is Normal. PA interval is normal. QRS ashkan interval is normal. QT interval is normal. No Q waves. T waves are Normal. No ST changes noted. Clinical impression: Normal ECG and No evidence of ischemia. Interpreted by me. Reviewed by me. Administered Medications: 04:19 Drug: Keppra (levETIRAcetam) 1000 mg Route: IV; Rate: per protocol; Site: right jb4 antecubital; 04:34 Follow up: Response: No adverse reaction; IV Status: Completed infusion; IV Intake: jb4 100ml 04:19 Drug: NS 0.9% 500 ml Route: IV; Rate: bolus; Site: right antecubital; jb4 04:53 Follow up: Response: No adverse reaction; IV Status: Completed infusion; IV Intake: jb4 500ml 04:53 Drug: NS 0.9% 1000 ml Route: IV; Rate: 125 ml/hr; Site: right antecubital; jb4 Disposition Summary: 01/27/22 06:38 Discharge Ordered Location: Home [place] Problem: new ashkan Symptoms: have improved ashkan Condition: Stable ashkan Diagnosis - Epileptic seizures related to external causes, not intractable ashkan - Altered mental status, unspecified - Resolved ashkan Followup: ashkan - With: Private Physician - When: 2 - 3 days - Reason: Recheck today's complaints, Continuance of care, Re-evaluation by your physician Followup: [place] - With: - When: 2 - 3 days - Reason: Recheck today's complaints, Continuance of care, Re-evaluation by your physician Discharge Instructions: - Discharge Summary Sheet ashkan - Confusion ashkan - Seizure, Adult ashkan - Seizure, Adult, [id number] ashkan Forms: - Medication Reconciliation Form ashkan - Thank You Letter ashkan - Antibiotic Education ashkan - Prescription Opioid Use ashkan Prescriptions: - Keppra 500 mg Oral Tablet - take 1 tablet by ORAL route every 12 hours; 20 tablet; Refills: 0, Product ashkan Selection Permitted Signatures: Dispatcher [employer] Christ Cason MD MD cha Bryson, James RN RN jb4
[2022-01-27 07:19] VITALS: TEMP 97.5
[2022-01-27 07:37] VITALS: BP 119/79; O2SAT 95
--- NOTE | 2022-01-28 13:50 | RAD REPORT ---
EXAM DESCRIPTION: CT - Thorax Jhon Wood - 01/27/2022 6:42 am CLINICAL HISTORY: The patient is 66 years old and is Male; Aspiration TECHNIQUE: Axial computed tomography images of the chest without intravenous contrast. Sagittal an d coronal reformatted images were created and reviewed. This CT exam was performed using one or mor e of the following dose reduction techniques: automated exposure control, adjustment of the mA and/ or kV according to patient size, and/or use of iterative reconstruction technique. COMPARISON: No relevant prior studies available. FINDINGS: Lungs: No pulmonary consolidation or groundglass opacities to suggest pneumonia. Pleural space: No pleural effusion or pneumothorax. Heart: Scattered coronary artery calcifications. No cardiomegaly. No significant pericardial effusion. Mediastinum: No pneumomediastinum. Bones/joints: No acute rib fracture visualized. No thoracic compression fracture. Mild degenerative changes in the bilateral sternoclavicular joints. No dislocation. Soft tissues: Unremarkable. Vasculature: Unremarkable. No thoracic aortic aneurysm. Lymph nodes: No pathologically enlarged lymph nodes. Kidneys and ureters: Punctate bilateral nephrolithiasis without hydronephrosis in the upper poles . Kidneys are incompletely evaluated. IMPRESSION: No pulmonary consolidation or groundglass opacities to suggest pneumonia. Electronically signed by: Angela Cuellar MD 01/27/2022 6:32 AM CDT Due to temporary technical issues with the PACS/Fluency reporting system, reports are being signed by the in house radiologists without review as a courtesy to insure prompt reporting. The interpreting radiologist is fully responsible for the content of the report.
--- NOTE | 2022-01-28 13:54 | RAD REPORT ---
EXAM DESCRIPTION: CT - Head C Spine Mpr Wo Con - 01/27/2022 6:42 am CLINICAL HISTORY: The patient is 66 years old and is Male; sz TECHNIQUE: Axial computed tomography images of the head/brain and cervical spine without intravenous contrast. Sagittal and coronal reformatted images were created and reviewed. This CT exam was pe rformed using one or more of the following dose reduction techniques: automated exposure control, a djustment of the mA and/or kV according to patient size, and/or use of iterative reconstruction techn ique. COMPARISON: No relevant prior studies available. FINDINGS: Brain: Midline falx calcification. No hemorrhage. No significant white matter disease. Ventricles: Unremarkable. No ventriculomegaly. Skull: No acute fracture. Sinuses: Complete opacification of the left maxillary sinus with bony wall thickening, consistent with chronic left maxillary sinus disease. Mastoid air cells: Unremarkable as visualized. No mastoid effusion. Vertebrae: No acute cervical spine fracture visualized. Atlantoodontoid degenerative changes. Multilevel degenerative facet arthropathy, right greate r than left. Lateral alignment is maintained. Discs/spinal canal/neural foramina: Degenerative disc disease C5-6 and C6-7 with mild central can al stenosis. Soft tissues: Unremarkable. Pleural space: No apical pneumothorax. IMPRESSION: 1. No acute intracranial findings. No hemorrhage. 2. No acute cervical spine fracture visualized. 3. Multilevel degenerative changes as above. Electronically signed by: Angela Cuellar MD 01/27/2022 5:10 AM CDT Due to temporary technical issues with the PACS/Fluency reporting system, reports are being signed by the in house radiologists without review as a courtesy to insure prompt reporting. The interpreting radiologist is fully responsible for the content of the report.
--- NOTE | 2022-01-28 14:11 | RAD REPORT ---
EXAM DESCRIPTION: RAD - Chest Single View - 01/27/2022 4:03 am CLINICAL HISTORY: The patient is 66 years old and is Male; COUGH TECHNIQUE: Frontal view of the chest. COMPARISON: No relevant prior studies available. FINDINGS: Lungs: Haziness in the mid-upper right lung which may be due to the underlying clavicle versus airspace disease. Prominent interstitial markings which may indicate mild interstitial edema. Pleural space: Unremarkable. No pneumothorax. Heart: Unremarkable. Mediastinum: Unremarkable. Bones/joints: Unremarkable. IMPRESSION: 1. Haziness in the mid-upper right lung which may be due to the underlying clavicle ve rsus airspace disease. 2. Prominent interstitial markings which may indicate mild interstitial edema. Electronically signed by: Isauro Weeks MD 01/27/2022 4:38 AM CDT Due to temporary technical issues with the PACS/Fluency reporting system, reports are being signed by the in house radiologists without review as a courtesy to insure prompt reporting. The interpreting radiologist is fully responsible for the content of the report.
--- NOTE | 2022-01-28 15:21 | EKG ---
Test Date: 2022-01-27 Test Time: 04:20:45 Lead Massage Therapist: MELLISSA MEASUREMENT RESULTS: Intervals: Rate: 78 NM: 182 QRSD: 82 QT: 372 QTc: 424 [place]: P: 77 NM: 182 QRS: 61 T: 75 INTERPRETIVE STATEMENTS: Normal sinus rhythm Normal ECG Compared to ECG 09/01/2018 22:17:49 No significant changes Electronically Signed On 01-28-22 15:19:05 CDT by Yuniel Romo
== END 2022-01-27 06:54 | disposition home or self-care (01) ==
LOC: ER 03:42
DX: G40.509 Epileptic seizures related to external causes, not intractable, without status epilepticus (principal); R41.82 Altered mental status, unspecified; I10 Essential (primary) hypertension; Z87.442 Personal history of urinary calculi; Z20.822 Contact with and (suspected) exposure to COVID-19
CPT/HCPCS: 96361; 93005; 85025; 80048; 36415; 83735; 85610; 80076; 81003; 84484; 83880; 70450; 71250; 72125; 71045; 96374; 99284; 87811; J1953; J7030

== ENCOUNTER 2023-01-25 15:13 | Emergency (ER) | payer BC ==
[2023-01-25 15:41] LABS: Absolute Lymphocytes (CBC) 1.4 K/uL (0.7-4.9); Lymphocytes % 19.2 % (15.3-44.8); MCV 87.9 fL (80-100); MPV 7.2 fL (7.6-11.3); Platelets 264 thou/uL (152-406); RBC Red Blood Cell Count 5.12 M/uL (4.33-5.43)
[2023-01-25] MEDS ORDERED: NA CHLORIDE 0.9% 2,000 ML ONE (15:43)
[2023-01-25 16:05] LABS: Albumin 3.8 g/dL (3.4-5.0); Bilirubin Direct 0.1 mg/dL (0-0.2); Bilirubin Indirect, Calculated 0.3 mg/dL (0.2-0.8); Bilirubin Total 0.4 mg/dL (0.2-1.0); Magnesium 2.5 mg/dL (1.6-2.4); Potassium 3.2 mEq/L (3.5-5.1); Protein, Total 7.3 g/dL (6.4-8.2); Troponin High Sensitivity 9.1 pg/mL (<58.9)
[2023-01-25] MEDS ORDERED: NA CHLORIDE 0.9% 0 ML ONE (17:03)
[2023-01-25] MEDS ORDERED: POTASSIUM 25 MEQ EFFERV TAB ONE (17:03)
--- NOTE | 2023-01-25 17:21 | RAD REPORT ---
EXAM DESCRIPTION: CT - Stone Protocol - 01/25/2023 4:53 pm CLINICAL HISTORY: Abdominal pain. COMPARISON: 2017 TECHNIQUE: Computed axial tomography of the abdomen pelvis was obtained without oral or IV contrast. Lack of IV and oral contrast limits evaluation of solid organs, appendix, bowel, and vessels. Drummond l reformatted images were obtained and reviewed. All CT scans are performed using dose optimization technique as appropriate and may include automated exposure control or mA/KV adjustment according to patient size. FINDINGS: Multiple, bilateral tiny renal calculi. No hydronephrosis. A ureteral calculus is not seen . No bladder calculus. The prostate gland is mildly enlarged The liver, spleen, pancreas and adrenals appear grossly normal There is no evidence of diverticulitis. IMPRESSION: Multiple, bilateral nonobstructing renal calculi
--- NOTE | 2023-01-25 17:22 | RAD REPORT ---
EXAM DESCRIPTION: Ana Single View01/25/2023 4:40 pm CLINICAL HISTORY: cough COMPARISON: 2021 FINDINGS: The lungs appear clear of acute infiltrate. The heart is normal size IMPRESSION: No acute abnormalities displayed
--- NOTE | 2023-01-25 17:24 | ER ---
Nurse's Notes [facility] Name: Guille Copeland Jr Age: 67 yrs Sex: Male : 1955 Arrival Date: 01/25/2023 Time: 15:13 Bed 3 Private MD: Diagnosis: Heat exhaustion, unspecified;Heat syncope;Vomiting;Unspecified kidney failure-insufficency;Hypokalemia;Rhabdomyolysis Presentation: 01/25 15:20 Chief complaint: EMS states: pt was outside working, got overheated, got dizzy, vomited iw several times, EMS reports his initial BP was 83/59 HR 134 , gave 300 NS, BP up to 117/74. Coronavirus screen: At this time, the client does not indicate any symptoms associated with coronavirus-19. Ebola Screen: Patient negative for fever greater than or equal to 101.5 degrees Fahrenheit, and additional compatible Ebola Virus Disease symptoms Patient denies exposure to infectious person. No symptoms or risks identified at this time. Initial Sepsis Screen: Does the patient meet any 2 criteria? No. Patient's initial sepsis screen is negative. Does the patient have a suspected source of infection? No. Patient's initial sepsis screen is negative. Risk Assessment: Do you want to hurt yourself or someone else? Patient reports no desire to harm self or others. Onset of symptoms was January 25, 2023. 15:20 Method Of Arrival: EMS: [facility] iw 15:20 Acuity: RACHAEL 3 iw Triage Assessment: 15:45 General: Appears in no apparent distress. Behavior is calm, cooperative. iw Historical: - Allergies: 15:22 No Known Allergies; iw - PMHx: 15:22 HTN; Kidney stones; Migraine; iw 15:22 Seizure; iw - Immunization history:: Adult Immunizations unknown. - Family history:: not pertinent. - Social history:: Smoking status: unknown. Screenin:50 [facility] ED Fall Risk Assessment (Adult) Score/Fall Risk Level 0 - 2 = Low Risk. Abuse iw screen: Denies threats or abuse. Denies injuries from another. Nutritional screening: No deficits noted. Tuberculosis screening: No symptoms or risk factors identified. Assessment: 15:45 General: Appears in no apparent distress. Behavior is calm, cooperative. Pain: Denies iw pain. Neuro: Level of Consciousness is awake, alert, obeys commands, Oriented to person, place, time, situation, Moves all extremities. Full function. Cardiovascular: Patient's skin is warm and dry. Rhythm is sinus tachycardia. Respiratory: Respiratory effort is even, unlabored, Respiratory pattern is regular, symmetrical. GI: Abdomen is flat, non-distended. Derm: Skin is intact, is healthy with good turgor. Musculoskeletal: Range of motion: intact in all extremities. 16:50 Reassessment: Patient appears in no apparent distress at this time. Patient and/or iw family updated on plan of care and expected duration. Pain level reassessed. Patient is alert, oriented x 3, equal unlabored respirations, skin warm/dry/pink. 17:31 Reassessment: Patient appears in no apparent distress at this time. Patient and/or iw family updated on plan of care and expected duration. Pain level reassessed. Patient is alert, oriented x 3, equal unlabored respirations, skin warm/dry/pink. 17:50 Reassessment: d/c pending completion of fluids. iw 18:30 Reassessment: Patient appears in no apparent distress at this time. Patient and/or iw family updated on plan of care and expected duration. Pain level reassessed. Patient is alert, oriented x 3, equal unlabored respirations, skin warm/dry/pink. Patient states feeling better. Patient states symptoms have improved. Vital Signs: 15:19 BP 93 / 70; Pulse 106; Resp 18; Temp 98.1; Pulse Ox 98% on R/A; iw 15:35 BP 119 / 66; Pulse 89; Resp 16; Pulse Ox 98% on R/A; iw 17:37 BP 168 / 85; Pulse 84; Resp 16; Pulse Ox 98% on R/A; iw ED Course: 15:16 Patient arrived in ED. iw 15:21 Triage completed. iw 15:21 Arm band placed on. iw 15:21 Patient has correct armband on for positive identification. iw 15:22 Elodia Goetz, RN is Primary Nurse. iw 15:22 Gera Rubio MD is Attending Physician. rt 15:23 Attending Physician role handed off by Gera Rubio MD [place] 15:23 Christ Nguyen MD is Attending Physician. [place] 15:25 Provided Education on: lab draw . iw 16:42 XRAY Chest (1 view) In Process Unspecified. EDMS 16:55 CT Stone Protocol In Process Unspecified. EDMS 17:23 Barbra Hickman MD is Referral Physician. [place] 17:37 No provider procedures requiring assistance completed. iw 18:30 IV discontinued, intact, bleeding controlled, No redness/swelling at site. Pressure iw dressing applied. Administered Medications: 15:36 Drug: NS 0.9% IV 1000 ml Route: IV; Rate: 1 bolus; Site: left antecubital; mb9 18:20 Follow up: IV Status: Completed infusion iw 15:36 Drug: NS 0.9% IV 1000 ml Route: IV; Rate: 1 bolus; Site: left antecubital; mb9 16:50 Follow up: IV Status: Completed infusion iw 17:05 Drug: Potassium PO Effervescent Tablet 25 mEq Route: PO; iw 18:00 Follow up: Response: No adverse reaction iw Medication: 15:45 VIS not applicable for this client. iw Outcome: 17:23 Discharge ordered by MD. [place] 18:30 Discharged to home ambulatory. iw 18:30 Condition: good 18:30 Discharge instructions given to patient, family, Instructed on discharge instructions, follow up and referral plans. medication usage, Demonstrated understanding of instructions, follow-up care, medications, Prescriptions given X 1. 18:34 Patient left the ED. iw Signatures: Dispatcher [employer] Christ Cason MD MD cha Williams, Irene, RN RN Dena Tai RN RN Gera Locke MD MD rt Corrections: (The following items were deleted from the chart) 16:58 15:19 BP 93 / 70; Pulse 106bpm; Resp 18bpm; Pulse Ox 98% RA; iw iw
--- NOTE | 2023-01-25 17:24 | EDPHYS ---
Physician Documentation [facility] Name: Guille Copeland Jr Age: 67 yrs Sex: Male : 1955 Arrival Date: 01/25/2023 Time: 15:13 Bed 3 Private MD: ED Physician Christ Nguyen HPI: 01/25 15:26 This 67 yrs old Male presents to ER via EMS with complaints of Heat Exposure. ashkan 15:26 The patient presents to the emergency department with nausea, vomiting, described as ashkan bilious. Onset: The symptoms/episode began/occurred just prior to arrival. Possible causes: heat exposure. The symptoms are aggravated by nothing. working in the heat. Associated signs and symptoms: Pertinent positives: nausea, vomiting. Historical: - Allergies: 15:22 No Known Allergies; iw - PMHx: 15:22 HTN; Kidney stones; Migraine; iw 15:22 Seizure; iw - Immunization history:: Adult Immunizations unknown. - Family history:: not pertinent. - Social history:: Smoking status: unknown. ROS: 15:26 Constitutional: Negative for fever, chills, and weight loss, Eyes: Negative for injury, ashkan pain, redness, and discharge, ENT: Negative for injury, pain, and discharge, Neck: Negative for injury, pain, and swelling, Respiratory: Negative for shortness of breath, cough, wheezing, and pleuritic chest pain, Abdomen/GI: Negative for abdominal pain, nausea, vomiting, diarrhea, and constipation, Back: Negative for injury and pain, : Negative for injury, bleeding, discharge, and swelling, MS/Extremity: Negative for injury and deformity, Skin: Negative for injury, rash, and discoloration, Neuro: Negative for headache, weakness, numbness, tingling, and seizure, Psych: Negative for depression, anxiety, suicide ideation, homicidal ideation, and hallucinations, Allergy/Immunology: Negative for hives, rash, and allergies, Endocrine: Negative for neck swelling, polydipsia, polyuria, polyphagia, and marked weight changes, Hematologic/Lymphatic: Negative for swollen nodes, abnormal bleeding, and unusual bruising. 15:26 Cardiovascular: Positive for palpitations. Exam: 15:26 Constitutional: This is a well developed, well nourished patient who is awake, alert, ashkan and in no acute distress. Head/Face: Normocephalic, atraumatic. Eyes: Pupils equal round and reactive to light, extra-ocular motions intact. Lids and lashes normal. Conjunctiva and sclera are non-icteric and not injected. Cornea within normal limits. Periorbital areas with no swelling, redness, or edema. ENT: Nares patent. No nasal discharge, no septal abnormalities noted. Tympanic membranes are normal and external auditory canals are clear. Oropharynx with no redness, swelling, or masses, exudates, or evidence of obstruction, uvula midline. Mucous membranes moist. Neck: Trachea midline, no thyromegaly or masses palpated, and no cervical lymphadenopathy. Supple, full range of motion without nuchal rigidity, or vertebral point tenderness. No Meningismus. Chest/axilla: Normal chest wall appearance and motion. Nontender with no deformity. No lesions are appreciated. Respiratory: Lungs have equal breath sounds bilaterally, clear to auscultation and percussion. No rales, rhonchi or wheezes noted. No increased work of breathing, no retractions or nasal flaring. Abdomen/GI: Soft, non-tender, with normal bowel sounds. No distension or tympany. No guarding or rebound. No evidence of tenderness throughout. Back: No spinal tenderness. No costovertebral tenderness. Full range of motion. Male : Normal genitalia with no discharge or lesions. Skin: Warm, dry with normal turgor. Normal color with no rashes, no lesions, and no evidence of cellulitis. MS/ Extremity: Pulses equal, no cyanosis. Neurovascular intact. Full, normal range of motion. Neuro: Awake and alert, GCS 15, oriented to person, place, time, and situation. Cranial nerves II-XII grossly intact. Motor strength 5/5 in all extremities. Sensory grossly intact. Cerebellar exam normal. Normal gait. Psych: Awake, alert, with orientation to person, place and time. Behavior, mood, and affect are within normal limits. 15:26 Cardiovascular: Rate: tachycardic, actual rate is 106 bpm, Rhythm: regular, Pulses: Pulses are 4+ in bilateral radial, brachial, femoral, popliteal, posterior tibial and and dorsalis pedis arteries.. Heart sounds: normal, JVD: is not appreciated. 15:46 ECG was reviewed by the Attending Physician. [facility] Vital Signs: 15:19 BP 93 / 70; Pulse 106; Resp 18; Temp 98.1; Pulse Ox 98% on R/A; iw 15:35 BP 119 / 66; Pulse 89; Resp 16; Pulse Ox 98% on R/A; iw 17:37 BP 168 / 85; Pulse 84; Resp 16; Pulse Ox 98% on R/A; iw MDM: 15:22 Patient medically screened. rt 15:28 Differential diagnosis: Nonspecific abd pain, viral gastroenteritis, gastroenteritis. [facility] Differential Diagnosis. Data reviewed: vital signs, nurses notes, lab test result(s), EKG, radiologic studies, CT scan, plain films. Consideration of Admission/Observation Escalation of care including admission/observation considered. I considered the following discharge prescriptions or medication management in the emergency department Medications were administered in the Emergency Department. See MAR. Test considered but Not performed: Ultrasound no 2 d echo. Care significantly affected by the following chronic conditions: Hypertension, kidney stones, migraines. 01/25 15:24 Order name: Basic Metabolic Panel; Complete Time: 16:32 [facility] 01/25 15:24 Order name: CBC with Diff; Complete Time: 16:32 [facility] 01/25 15:24 Order name: LFT's; Complete Time: 16:32 [facility] 01/25 15:24 Order name: Magnesium; Complete Time: 16:32 [facility] 01/25 15:24 Order name: NT PRO-BNP; Complete Time: 16:32 [facility] 01/25 15:24 Order name: PT-INR; Complete Time: 16:32 [facility] 01/25 15:24 Order name: Troponin HS; Complete Time: 16:32 [facility] 01/25 15:24 Order name: CPK; Complete Time: 16:32 [facility] 01/25 15:24 Order name: XRAY Chest (1 view); Complete Time: 17:23 [facility] 01/25 16:34 Order name: CT Stone Protocol; Complete Time: 17:23 [facility] 01/25 15:24 Order name: EKG; Complete Time: 15:24 [facility] 01/25 15:24 Order name: Cardiac monitoring; Complete Time: 15:32 [facility] 01/25 15:24 Order name: EKG - Nurse/Tech; Complete Time: 15:46 [facility] 01/25 15:24 Order name: IV Saline Lock; Complete Time: 15:37 [facility] 01/25 15:24 Order name: Labs collected and sent; Complete Time: 15:37 [facility] 01/25 15:24 Order name: O2 Per Protocol; Complete Time: 15:32 [facility] 01/25 15:24 Order name: O2 Sat Monitoring; Complete Time: 15:32 [facility] 01/25 16:33 Order name: PO challenge: water ,juice; Complete Time: 17:05 [facility] EC:46 Rate is 82 beats/min. Rhythm is regular. QRS [place] is Normal. GA interval is normal. QRS [place] interval is normal. QT interval is normal. No Q waves. T waves are Normal. No ST changes noted. Clinical impression: NSR w/ Non-specific ST/T Changes and No evidence of ischemia. Interpreted by me. Reviewed by me. Administered Medications: 15:36 Drug: NS 0.9% IV 1000 ml Route: IV; Rate: 1 bolus; Site: left antecubital; mb9 18:20 Follow up: IV Status: Completed infusion iw 15:36 Drug: NS 0.9% IV 1000 ml Route: IV; Rate: 1 bolus; Site: left antecubital; mb9 16:50 Follow up: IV Status: Completed infusion iw 17:05 Drug: Potassium PO Effervescent Tablet 25 mEq Route: PO; iw 18:00 Follow up: Response: No adverse reaction iw Disposition Summary: 01/25/23 17:23 Discharge Ordered Location: Home [place] Problem: new [place]kan Symptoms: have improved ashkan Condition: Stable ash[place] Diagnosis - Heat exhaustion, unspecified ash[place] - Heat syncope ash[place] - Vomiting ashkan - Unspecified kidney failure - insufficency ashkan - Hypokalemia ashkan - Rhabdomyolysis ashkan Followup: ashkan - With: Private Physician - When: 2 - 3 days - Reason: Recheck today's complaints, Continuance of care, Re-evaluation by your physician Followup: ash[place] - With: Barbra Hickman MD - When: 2 - 3 days - Reason: Recheck today's complaints, Re-evaluation by your physician Discharge Instructions: - Discharge Summary Sheet ashkan - Potassium Content of Foods ashkan - Rhabdomyolysis ashkan - Acute Kidney Injury, Adult ashkan - Heat Exhaustion ashkan - Hypokalemia ashkan - Vomiting, Adult ashkan - Preventing Heat Exhaustion, Adult ashkan - Heat Stroke ashkan Forms: - Medication Reconciliation Form ashkan - Thank You Letter ashkan - Antibiotic Education ashkan - Prescription Opioid Use ashkan - Patient Portal Instructions ashkan - Leadership Thank You Letter ashkan - Work release form iw Prescriptions: - ondansetron 4 mg Oral Tablet,disintegrating - take 1 tablet by ORAL route every 6 to 8 hours as needed for nausea and ashkan vomiting; 20 tablet; Refills: 0, Product Selection Permitted Signatures: Dispatcher [employer] Christ Cason MD MD cha Williams, Irene, RN RN iw Dena Alston RN RN mb9 Gera Rubio MD MD rt
[2023-01-25 18:39] VITALS: TEMP 98.1; O2SAT 98
[2023-01-25 18:41] VITALS: BP 168/85
--- NOTE | 2023-01-26 15:22 | EKG ---
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
== END 2023-01-25 18:34 | disposition home or self-care (01) ==
LOC: ER 15:13
DX: T67.5XXA Heat exhaustion, unspecified, initial encounter (principal); T67.1XXA Heat syncope, initial encounter; N19 Unspecified kidney failure; E87.6 Hypokalemia; M62.82 Rhabdomyolysis; I10 Essential (primary) hypertension; Z87.442 Personal history of urinary calculi
CPT/HCPCS: 96361; 93005; 85025; 80048; 36415; 83735; 82550; 85610; 80076; 84484; 83880; 76377; 74176; 71045; 96360; 99284; J7030; J7040